=== PATIENT | male | born 1975 | race Caucasian/White ===

== ENCOUNTER 2016-06-23 19:04 | Emergency (ER) | payer MEDICAID, OTHER ==
[2016-06-23 19:18] VITALS: BP 159/110
--- NOTE | 2016-06-23 19:44 | EDM.PDOC ---
ED HPI GENERAL MEDICAL PROBLEM - General Chief Complaint: General Stated Complaint: PAINFUL HERNIA Time Seen by Provider: 06/23/16 19:15 Source of Information: Reports: Patient History Limitations: Reports: No limitations - History of Present Illness INITIAL COMMENTS - FREE TEXT/NARRATIVE: According to patient he has noticed a swelling over his belly button about 3-4 months now. The swelling does get achy at times and resolves. But for the past 3 days he has been having dull pain in the swelling and sometimes his abdomen hurts. No nausea or vomiting. Has been feeding normal. Has normal bowel movement. No abdominal bloating. No fever or chills. No dysuria. No radiation of pain. Onset Date: 06/20/16 Location: Reports: abdomen Quality: Reports: Ache Severity: mild Associated Symptoms: Denies: confusion, cough, fever/chills, nausea/vomiting, shortness of breath, weakness Epigastric Pain Score (Numeric/FACES): 2 - Related Data Allergies Allergy/AdvReac Type Severity Reaction Status Date / Time No Known Allergies Allergy Verified 06/23/16 19:17 Home Meds: Home Meds NK [No Known Home Meds] 06/23/16 [History] Social & Family History - Tobacco Use Smoking Status *Q: Former Smoker Years of Tobacco use: 20 Packs/Tins Daily: 0.5 Used Tobacco, but Quit: Yes Month Tobacco Last Used: 2005 Second Hand Smoke Exposure: Yes - Caffeine Use Caffeine Use: Reports: Coffee, Energy drinks, Soda - Recreational Drug Use Recreational Drug Use: No ED ROS GENERAL - Review of Systems Review Of Systems: See Below Constitutional: Denies: fever, chills HEENT: Denies: Rhinitis, Sinus problem, Throat pain Respiratory: Denies: Cough, Sputum Cardiovascular: Denies: Chest pain, Lightheadedness GI/Abdominal: Reports: Abdominal pain, Flatus. Denies: Decreased appetite, Difficulty swallowing, Hematemesis, Nausea, Vomiting : Denies: dysuria, flank pain, frequency Musculoskeletal: Denies: neck pain, shoulder pain, joint pain, joint swelling ED EXAM, GENERAL - Physical Exam Exam: See Below Exam Limited By: No limitations General Appearance: alert, WD/WN, no apparent distress Eye Exam: bilateral eye: EOMI, PERRL Ears: normal external exam, normal canal, hearing grossly normal, normal TMs Ear Exam: bilateral ear: auricle normal, canal normal, TM normal Nose: normal inspection Head: atraumatic, normocephalic Neck: normal inspection, supple, non-tender, full range of motion Respiratory/Chest: no respiratory distress, lungs clear, normal breath sounds, no accessory muscle use, chest non-tender Cardiovascular: normal peripheral pulses, regular rate, rhythm, no edema, no gallop, no JVD, no murmur, no rub Peripheral Pulses: 2+: radial (L), radial (R) GI/Abdominal: normal bowel sounds, soft, no organomegaly, no distention, no abnormal bruit, hernia (There ia hernia seen in the umbilical region. It is about the size of a large grape. Mild tenderness to palpation. The hernia completely reduces into the abdominal cavity. + cough im[ulse. No signs of strangulation. No rebound tenderness in the abdomen. Normal bowel sounds) Course - Vital Signs Text/Narrative:: Pt reassured that he has a reducible umbilical hernia. he does have mild tenderness with deep pressure. There are no signs of obstruction and it is easily reducible. Advised to avoid straining during defecation.I Have advised him to return to emergency room if her develops sudden onset of severe abdominal pain, distension, nausea or vomiting. Otherwise, I he will be scheduled to have outpatient surgical evaluation done through [facility]. Pt does under stand the plan. Last Recorded V/S: Last Vital Signs Temp 98.3 F 06/23/16 19:31 Pulse 85 06/23/16 19:31 Resp 16 06/23/16 19:31 BP 159/110 H 06/23/16 19:31 Pulse Ox 98 06/23/16 19:31 Departure - Departure Time of Disposition: 19:40 Disposition: Home, Self-Care 01 Condition: good Clinical Impression: Umbilical hernia Instructions: Hernia, Adult Forms: ED Department Discharge Additional Instructions: Continue to monitor for any signs/symptoms of worsening condition, such as nausea, vomiting, difficulty with bowel movements. Follow up with regular provider in clinic as needed. The hospital will contact you tomorrow about setting up an appointment for a consult with general surgery. Diet and activity as tolerated. Call with any questions. - Problem List & Annotations (1) Umbilical hernia SNOMED Code(s): 315126153, 127556939 Code(s): K42.9 - UMBILICAL HERNIA WITHOUT OBSTRUCTION OR GANGRENE Status: Acute - Problem List Review Problem List Initiated/Reviewed/Updated: Yes - Assessment/Plan Assessment:: Uncomplicated umbilical hernia Plan: Pt reassured that he has a reducible umbilical hernia. he does have mild tenderness with deep pressure. There are no signs of obstruction and it is easily reducible. Advised to avoid straining during defecation.I Have advised him to return to emergency room if her develops sudden onset of severe abdominal pain, distension, nausea or vomiting. Otherwise, I he will be scheduled to have outpatient surgical evaluation done through [facility]. Pt does under stand the plan.
== END 2016-06-23 19:30 | disposition home or self-care (01) ==
LOC: LB.ED 19:04
DX: K42.9 Umbilical hernia without obstruction or gangrene (principal); Z87.891 Personal history of nicotine dependence
CPT/HCPCS: 99283

== ENCOUNTER 2016-07-12 07:32 | Day surgery (SDC) | payer MEDICAID ==
[~2016-07-12 07:32] MED LIST: Acetaminophen/HYDROcodone 325-5 MG Tab PO PRN; Lactated Ringers 1,000 ML IV SCH; Morphine 2 MG/ML Syringe IVPUSH PRN; Ondansetron 4 MG/2 ML SDV IVPUSH PRN; Sodium Chloride 0.9% 10 ML Syringe FLUSH PRN; ceFAZolin 1 GM in Sodium Chloride 0.9% 100 ML IV ONE
[2016-07-12] MEDS: ceFAZolin 1 GM Vial ONE ×2 (08:32→08:34)
[2016-07-12] MEDS ORDERED: Propofol 1,000 MG/100 ML SDV ONE (10:10)
[2016-07-12] MEDS ORDERED: fentaNYL 250 MCG/5 ML SDV ONE (10:10)
[2016-07-12] MEDS ORDERED: Midazolam 1 MG/ML 5 ML SDV ONE (10:10)
[2016-07-12] MEDS ORDERED: Ondansetron 4 MG/2 ML SDV ONE (10:10)
[2016-07-12] MEDS ORDERED: Ketorolac 30 MG/ML SDV ONE (10:10)
[2016-07-12 12:36] VITALS: BP 119/79
--- NOTE | 2016-07-12 13:26 | OR ---
DATE OF OPERATION: 07/12/2016 PREOPERATIVE DIAGNOSIS: Incarcerated umbilical hernia. POSTOPERATIVE DIAGNOSIS: Incarcerated umbilical hernia. OPERATION: Primary umbilical hernia repair. COMPLICATIONS: None. DRAINS: None. SPECIMENS: Umbilical hernia sac and preperitoneal fat with hernia sac. ESTIMATED BLOOD LOSS: Approximately 10 mL. ANESTHESIA: General endotracheal anesthesia and general LMA anesthesia. Please see Anesthesia notes. DRAINS: None. PLATEN PRESS OPERATOR APPRENTICE: April Lawson. INDICATION: Mr. Ramirez is a 41-year-old gentleman, who has been having progressive enlargement and pain around his umbilicus. He has a clearly identifiable supraumbilical hernia and this was difficult to reduce and it appeared incarcerated. The above-mentioned procedure was explained. The risks, benefits, and complications were explained. The patient understood and agreed, and he was brought to the operating room. DESCRIPTION OF PROCEDURE: The patient was brought to the operating room and placed supine on the operating room table. Satisfactory general endotracheal and general LMA anesthesia was administered. Preoperative antibiotics and DVT prophylaxis were administered. The abdomen was prepped and draped in sterile fashion. We began by making a semicircular supraumbilical incision and subsequently deepening down the tissues with Bovie electrocautery down to the level of the hernia sac. This was then easily dissected out with Metzenbaum, Endo Tony, as well as blunt dissection with finger fracturing around the actual sac itself. I then cleared approximately 1 cm around the hernia defect using Bovie electrocautery and then using Bovie electrocautery to allow access to the fascia. This was done circumferentially around the umbilicus and around the defect. I was then able to identify the plane between the hernia sac and the overlying skin of the umbilicus. Then using Metzenbaum, Endo Tony, and Bovie electrocautery, the hernia sac was removed off the skin itself. The skin was retracted back and the hernia sac was then clearly delineated and its margins were delineated at the level of the fascia. The fascial defect was approximately 1.5 cm in size. The hernia was then broken into 2 parts using hemostats and clamped and subsequently excised using Bovie electrocautery and the sac and content, which was preperitoneal fat, was removed and passed off for permanent histology. The clamped segments of fat were then tied off with 0 silk ties. This fell back into the abdomen with good hemostasis appeared satisfactory. The defect was now clearly visible and I then placed 0 PDS sutures in an interrupted fashion along the fascial defect, approximately 5 were utilized to close the defect satisfactorily. Next, the wound was then thoroughly irrigated with warm normal saline and hemostasis was achieved with Bovie electrocautery. The umbilical skin was then reapproximated to the midline to reconstruct the belly button with 3- 0 Vicryl in a [id number] fashion. I then used 3-0 Vicryl in a running fashion to close the subcutaneous layer to close the space and this was accomplished easily. I then used another 3-0 Vicryl in a deep dermal fashion to bring together at the skin. This was an interrupted deep dermal fashion. This skin was then closed with 4-0 Monocryl in a subcuticular fashion. Dermabond glue was applied. Hemostasis was satisfactory. The patient tolerated the procedure well. There were no complications. Instrument count was correct. The patient was awoken in the OR and taken to the PACU for recovery. CLARA /[id number]
== END 2016-07-12 15:51 | disposition home or self-care (01) ==
LOC: LB.SDS 07:32
PROVIDERS: ATTEND Surgery
DX: K42.0 Umbilical hernia with obstruction, without gangrene (principal); I10 Essential (primary) hypertension; E11.9 Type 2 diabetes mellitus without complications; Z79.899 Other long term (current) drug therapy; Z87.891 Personal history of nicotine dependence
CPT/HCPCS: 49587; 88302; 96374; J0690; J1885; J2250; J2405; J3010; J7030; J7050; J7120; J3490

== ENCOUNTER 2016-10-25 23:22 | Emergency (ER) | payer MEDICAID ==
[2016-10-25] MEDS ORDERED: Aspirin 81 MG Tab.Chew PO SCH (23:45)
[2016-10-25] MEDS ORDERED: Metoprolol Tartrate 5 MG/5 ML SDV IVPUSH ONE (23:48)
--- NOTE | 2016-10-25 23:52 | EDM.PDOC ---
ED HPI GENERAL MEDICAL PROBLEM - General Chief Complaint: General Stated Complaint: tingling arm Time Seen by Provider: 10/25/16 23:25 Source of Information: Reports: Patient History Limitations: Reports: No Limitations - History of Present Illness INITIAL COMMENTS - FREE TEXT/NARRATIVE: Started to have pain in his left arm around 6 p tonight; he states the pain started at his elbow and shot up. So, extremely atypical. However, he also has left sided chest pressure that radiates into his left side of his neck; It is a constant. He took 2 regular aspirins around 6:20. Seems like it helped for a little bit. He felt SOB, nauseated and diaphoretic. Fam hx, hptn and high cholesterol along with being a middle aged male makes him at moderate risk for CAD. Onset: Today Onset Date: 10/25/16 Onset Time: 18:00 Duration: Hour(s): (4 hours ) Location: Reports: Chest, Upper Extremity, Left Quality: Reports: Sharp, Stabbing, Other (arm pain, chest pressure) Severity: Moderate Improves with: Reports: None Worsens with: Reports: None Associated Symptoms: Reports: Chest Pain, Diaphoresis, Nausea/Vomiting, Shortness of Breath Left Chest Pain Score (Numeric/FACES): 5 - Related Data Allergies Allergy/AdvReac Type Severity Reaction Status Date / Time No Known Allergies Allergy Verified 10/26/16 00:17 Home Meds: Home Meds Lisinopril [Prinivil] 10 mg PO DAILY 07/10/16 [History] Past Medical History Cardiovascular History: Reports: [place], Other (See Below) Other Cardiovascular History: States he used to be medicated for HTN, but has not been for sometime. Respiratory History: Reports: Asthma Gastrointestinal History: Reports: Other (See Below) Other Gastrointestinal History: Umbilical hernia Endocrine/Metabolic History: Reports: Diabetes, Type II, Other (See Below) Other Endocrine/Metabolic History: Reports he had "very low" diabetes, but has never been medicated for it, and is "not sure" if he "still has it anymore." - Infectious Disease History Infectious Disease History: Reports: Chicken Pox Social & Family History - Family History Family Medical History: Noncontributory - Tobacco Use Smoking Status *Q: Former Smoker Years of Tobacco use: 20 Packs/Tins Daily: 0.5 Used Tobacco, but Quit: Yes Month Tobacco Last Used: 2005 Second Hand Smoke Exposure: Yes - Caffeine Use Caffeine Use: Reports: Coffee, Energy Drinks, Soda - Recreational Drug Use Recreational Drug Use: No ED ROS GENERAL - Review of Systems Review Of Systems: See Below Constitutional: Reports: Diaphoresis HEENT: Reports: No Symptoms Respiratory: Reports: Shortness of Breath Cardiovascular: Reports: Chest Pain, Dyspnea on Exertion, Other (more of a chest pressure) GI/Abdominal: Reports: Nausea : Reports: No Symptoms Musculoskeletal: Reports: Neck Pain, Shoulder Pain, Arm Pain (all left side starting at elbow and moves up) Skin: Reports: No Symptoms Neurological: Reports: No Symptoms Psychiatric: Reports: No Symptoms ED EXAM, GENERAL - Physical Exam Exam: See Below Exam Limited By: No Limitations General Appearance: Alert, WD/WN, No Apparent Distress Ears: Normal External Exam Nose: Normal Inspection Throat/Mouth: Normal Inspection, Normal Lips Head: Atraumatic, Normocephalic Neck: Normal Inspection, Non-Tender, Full Range of Motion Respiratory/Chest: No Respiratory Distress, Lungs Clear, Normal Breath Sounds Cardiovascular: Normal Peripheral Pulses, Regular Rate, Rhythm, No Edema Peripheral Pulses: 4+: Posterior Tibial (L), Posterior Tibial (R), Dorsalis Pedis (L), Dorsalis Pedis (R) GI/Abdominal: Normal Bowel Sounds, Soft, Non-Tender Back Exam: Full Range of Motion Extremities: Normal Range of Motion Neurological: Alert, Oriented, CN II-XII Intact Psychiatric: Normal Affect, Normal Mood Skin Exam: Warm, Dry, Intact EKG INTERPRETATION EKG Date: 10/26/16 Rhythm: NSR Rate (Beats/Min): 85 P-Wave: Present QRS: Normal ST-T: Other (V1 slight elevation, V2 ? Had [facility] ER doc review; didn't feel it was STEMI protocol) Course - Vital Signs Last Recorded V/S: Last Vital Signs Temp 98 F 10/25/16 23:25 Pulse 105 H 10/26/16 00:26 Resp 16 10/25/16 23:25 BP 152/92 H 10/26/16 00:26 Pulse Ox 97 10/25/16 23:25 - Orders/Labs/Meds Orders: Active Orders 24 hr Category Date Time Status Cardiac Monitoring [RC] .As Directed Care 10/26/16 00:29 Ordered EKG Documentation Completion [RC] ASDIRECTED Care 10/25/16 23:47 Active EKG Documentation Completion [RC] ASDIRECTED Care 10/25/16 23:56 Ordered Chest 1V Frontal [CR] Stat Exams 10/25/16 23:46 Ordered INR,PT,PROTHROMBIN TIME [COAG] Stat Lab 10/26/16 00:28 Ordered PTT,PARTIAL THROMBOPLSTIN TIME [COAG] Stat Lab 10/26/16 00:28 Ordered Aspirin Med 10/25/16 23:45 Active 162 mg PO DAILY Heparin Sodium/D5W [Heparin 25,000 Units in D5W 500 ML] Med 10/26/16 00:30 Ordered 25,000 units in 500 ml IV TITRATE Nitroglycerin [Nitrostat] Med 10/25/16 23:52 Active 0.4 mg SL Q5M PRN Medication Orders Aspirin (Aspirin) 162 mg PO DAILY SATINDER Heparin Sodium/Dextrose (Heparin 25,000 Units In D5w 500 Ml) 25,000 units in 500 mls @ 20 mls/hr IV TITRATE SATINDER; 1,000 UNITS/HR PRN Reason: Protocol Nitroglycerin (Nitrostat) 0.4 mg SL Q5M PRN PRN Reason: Chest Pain Labs: Laboratory Tests 10/25/16 10/25/16 Range/Units 23:55 23:55 WBC 7.2 (4.0-11.0) K/uL RBC 5.00 (4.50-6.50) M/uL Hgb 15.0 (13.0-18.0) g/dL Hct 43.3 (40.0-54.0) % MCV 87 (76-96) fL MCH 30.0 (27.0-32.0) pg MCHC 34.6 (31.0-35.0) g/dL RDW 13.4 (11.0-16.0) % Plt Count 209 (150-400) K/uL MPV 9.8 (6.0-10.0) fL Neut % (Auto) 57.5 (45.0-70.0) % Lymph % (Auto) 28.8 (20.0-40.0) % [place] % (Auto) 11.9 H (3.0-10.0) % Eos % (Auto) 1.5 (1.0-5.0) % Baso % (Auto) 0.3 (0.0-0.5) % Neut # (Auto) 4.14 (2.00-7.50) K/uL Lymph # (Auto) 2.08 (1.50-4.00) K/uL [place] # (Auto) 0.86 H (0.20-0.80) K/uL Eos # (Auto) 0.11 (0.04-0.40) K/uL Baso # (Auto) 0.02 (0.02-0.10) K/uL Sodium 139 (136-145) mmol/L Potassium 3.7 (3.5-5.1) mmol/L Chloride 103 (98-107) mmol/L Carbon Dioxide 29.6 (21.0-32.0) mmol/L Anion Gap 10.1 (5.0-15.0) mmol/L BUN 17 (8-26) mg/dL Creatinine 1.37 H D (0.70-1.30) mg/dL Est Cr Clr Drug Dosing 2.48 mL/min Estimated GFR (MDRD) 57 L (>60) MLS/MIN BUN/Creatinine Ratio 12.4 (6-25) Glucose 123 H (74-100) mg/dL Calcium 9.2 (8.5-10.1) mg/dL Total Bilirubin 0.5 (0.0-1.0) mg/dL AST 34 (15-37) U/L ALT 106 H (12-78) U/L Alkaline Phosphatase 76 (46-116) U/L Troponin I 0.024 (0.000-0.060) ng/mL Total Protein 7.3 (6.4-8.2) g/dL Albumin 3.9 (3.4-5.0) g/dL Globulin 3.4 (2.2-4.2) g/dL Albumin/Globulin Ratio 1.1 (0.8-2.0) Meds: Medications Generic Name Dose Route Start Last Admin Trade Name Freq PRN Reason Stop Dose Admin Aspirin 162 mg 10/25/16 23:45 Aspirin PO DAILY [facility] Heparin Sodium/Dextrose 25,000 units in 500 mls @ 20 mls/hr 10/26/16 00:30 Heparin 25,000 Units In D5w 500 Ml IV TITRATE [facility] Protocol 1,000 UNITS/HR Nitroglycerin 0.4 mg 10/25/16 23:52 Nitrostat SL Q5M PRN Chest Pain Discontinued Medications Generic Name Dose Route Start Last Admin Trade Name Markel PRN Reason Stop Dose Admin Metoprolol Tartrate 5 mg 10/25/16 23:48 Lopressor IVPUSH 10/25/16 23:49 ONETIME ONE - Radiology Interpretation Free Text/Narrative:: Chest xray shows no acute cardiopulmonary process - Re-Assessments/Exams Free Text/Narrative Re-Assessment/Exam: 10/26/16 00:10 1 SL Ntg for 4/10 chest pressure; 5 minutes later, pain is a 1 Free Text/Narrative Re-Assessment/Exam: 10/26/16 00:42 2nd nitro given, pain is a 0 now. BP 131/84 (initial BP 180 systolic) Departure - Departure Time of Disposition: 13:45 Disposition: DC/Tfer to Acute Hospital 02 Condition: Fair Clinical Impression: Chest pain - Discharge Information Forms: ED Department Discharge ED Communication - ED Communication Date/Time Date: 10/26/16 Time Called: 00:30 - Discussed Case With (1) Discussed Case With (1): Admitting Provider (Spoke with Keli custom bookbinder; Consult Accepting is Dr. Fung, Hospitalist) - Problem List & Annotations (1) Chest pain SNOMED Code(s): 53673202 Code(s): R07.9 - CHEST PAIN, UNSPECIFIED Status: Acute Priority: High Qualifiers: Ischemic chest pain type: unspecified angina pectoris type - Problem List Review Problem List Initiated/Reviewed/Updated: Yes - My Orders Last 24 Hours: My Active Orders 10/25/16 23:45 Aspirin 162 mg PO DAILY 10/25/16 23:46 Chest 1V Frontal [CR] Stat 10/25/16 23:47 EKG Documentation Completion [RC] ASDIRECTED 10/25/16 23:52 Nitroglycerin [Nitrostat] 0.4 mg SL Q5M PRN 10/25/16 23:56 EKG Documentation Completion [RC] ASDIRECTED 10/26/16 00:28 INR,PT,PROTHROMBIN TIME [COAG] Stat PTT,PARTIAL THROMBOPLSTIN TIME [COAG] Stat 10/26/16 00:29 Cardiac Monitoring [RC] .As Directed 10/26/16 00:30 Heparin Sodium/D5W [Heparin 25,000 Units in D5W 500 ML] 25,000 units in 500 ml IV TITRATE - Assessment/Plan Last 24 Hours: My Active Orders 10/25/16 23:45 Aspirin 162 mg PO DAILY 10/25/16 23:46 Chest 1V Frontal [CR] Stat 10/25/16 23:47 EKG Documentation Completion [RC] ASDIRECTED 10/25/16 23:52 Nitroglycerin [Nitrostat] 0.4 mg SL Q5M PRN 10/25/16 23:56 EKG Documentation Completion [RC] ASDIRECTED 10/26/16 00:28 INR,PT,PROTHROMBIN TIME [COAG] Stat PTT,PARTIAL THROMBOPLSTIN TIME [COAG] Stat 10/26/16 00:29 Cardiac Monitoring [RC] .As Directed 10/26/16 00:30 Heparin Sodium/D5W [Heparin 25,000 Units in D5W 500 ML] 25,000 units in 500 ml IV TITRATE Plan: Transfer to [facility] as direct admit for further evaluation;
[2016-10-25] MEDS: Nitroglycerin 0.4 MG Tab.SL SL PRN (23:53)
[2016-10-26] MEDS: Nitroglycerin 0.4 MG Tab.SL SL PRN (00:25)
[2016-10-26] MEDS ORDERED: Heparin Sodium/D5W 25,000 UNITS/500 ML BAG IV SCH (00:30)
[2016-10-26] MEDS ORDERED: Sodium Chloride 0.9% 1,000 ML IV SCH (01:00)
[2016-10-26] MEDS ORDERED: Heparin Sodium 5,000 UNITS/0.5 ML Syringe IVPUSH ONE (01:00)
[2016-10-26 02:59] VITALS: BP 118/69
--- NOTE | 2016-10-29 08:19 | CR ---
Date of Exam: 10/26/2016 Clinical Data: Chest pain. AP PORTABLE CHEST: Comparison is made to a prior exam dated 01/04/2016. The heart size is within normal limits. The lungs are clear. No change from the prior exam. Impression: No evidence of acute intrathoracic disease. Thank you for allowing us to participate in the care of your patient. ANDREINA
== END 2016-10-26 01:45 ==
LOC: LB.ED 23:22
DX: R07.89 Other chest pain (principal); I10 Essential (primary) hypertension; J45.909 Unspecified asthma, uncomplicated; I25.2 Old myocardial infarction; E11.9 Type 2 diabetes mellitus without complications; Z87.891 Personal history of nicotine dependence
CPT/HCPCS: 36415; 71010; 80053; 84484; 85025; 85610; 85730; 93005; 96374; 99285; A0425; A0429; A9270; J1644; J7040

== ENCOUNTER 2018-07-20 06:47 | Emergency (ER) | payer MEDICAID | END 2018-07-20 07:35 | disposition left against medical advice (07) | LOC: LB.ED 06:47 | DX: Z13.9 Encounter for screening, unspecified (principal) ==

== ENCOUNTER 2023-01-04 15:40 | Emergency (ER) | payer SELFPAY ==
[2023-01-04 16:07] VITALS: BP 183/121; PULSE 110
[2023-01-04] MEDS ORDERED: Diphtheria,Pertussis(Acell),Tetanus Vaccine 0.5 ML Syringe IM ONE (16:21)
[2023-01-04] MEDS ORDERED: Mupirocin Oint 22 GM Tube TOP ONE (16:22)
[2023-01-04] MEDS ORDERED: Cephalexin 500 MG Cap PO ONE (16:22)
[2023-01-04] MEDS ORDERED: Lidocaine 1% 30 ML SDV INFILT ONE (16:22)
[2023-01-04] MEDS ORDERED: Lidocaine 1% 5 ML VIAL INJECT ONE (16:25)
[2023-01-04] MEDS ORDERED: Cephalexin 500 MG Cap ONE (16:45)
[2023-01-04] MEDS ORDERED: Bacitracin Oint 1 GM U/D Packet TOP ONE (16:49)
== END 2023-01-04 16:57 | disposition home or self-care (01) ==
LOC: LB.ED 15:40
DX: S61.412A Laceration without foreign body of left hand, initial encounter (principal); I10 Essential (primary) hypertension; I25.2 Old myocardial infarction; E11.9 Type 2 diabetes mellitus without complications; F17.210 Nicotine dependence, cigarettes, uncomplicated; Z23 Encounter for immunization; W45.0XXA Nail entering through skin, initial encounter
CPT/HCPCS: 12002; 90471; 90715; 99282; A9270

== ENCOUNTER 2024-12-26 23:48 | Emergency (ER) | payer SELFPAY ==
[2024-12-26] MEDS: Nitroglycerin 0.4 MG Tab.SL SL PRN (23:59)
[2024-12-27] MEDS ORDERED: Sodium Chloride 0.9% 10 ML Syringe FLUSH PRN (00:03)
[2024-12-27] MEDS: Heparin Sodium 5,000 Units/ML Vial IVPUSH ONE ×2 (00:09→00:20)
[2024-12-27] MEDS: Metoprolol Tartrate 5 MG/5 ML SDV IVPUSH ONE (00:10)
[2024-12-27 00:11] LABS: MEAN PLATELET VOLUME 9.1 fL (6.0-10.0); PLATELET COUNT,PLT 276.0 K/uL (150-400); RED BLOOD CELL COUNT 6.05 M/uL (4.50-6.50); RED CELL DISTRIBUTION WIDTH 12.9 % (11.0-16.0); WHITE BLOOD CELL COUNT,WBC 9.6 K/uL (4.0-11.0)
[2024-12-27] MEDS: Metoprolol Tartrate 5 MG/5 ML SDV ONE (00:11)
[2024-12-27 00:23] LABS: A/G RATIO 1.0 (0.8-2.0); ALANINE AMINOTRANSFERASE,ALT 49.0 U/L (12-78); ASPARTATE AMNIOTRANSFERASE,AST 23.0 U/L (15-37); BILIRUBIN TOTAL 0.5 mg/dL (0.0-1.0); BLOOD UREA NITROGEN,BUN 20.0 mg/dL (8-26); CARBON DIOXIDE,CO2 23.1 mmol/L (21.0-32.0); CHLORIDE,CL 97.0 mmol/L (98-107); CREATININE 1.2 mg/dL (0.70-1.30); EST CRCL DRUG DOSING (CG) 72.83 mL/min; ESTIMATED GFR 73.0 mL/min (>60); GLUCOSE RANDOM 351.0 mg/dL (74-100); POTASSIUM,K 3.9 mmol/L (3.5-5.1); PROTEIN TOTAL,TP 8.4 g/dL (6.4-8.2); SODIUM,NA 135.0 mmol/L (136-145)
[2024-12-27 00:27] LABS: TROPONIN I HIGH SENSITIVITY 130.5 pg/ml (<=60.4)
[2024-12-27] MEDS: Morphine 10 MG/ML SDV ONE (00:43)
[2024-12-27 01:10] VITALS: BP 163/114; PULSE 100
== END 2024-12-27 01:30 ==
LOC: LB.ED 23:48
DX: I21.4 Non-ST elevation (NSTEMI) myocardial infarction (principal); I25.9 Chronic ischemic heart disease, unspecified; E11.9 Type 2 diabetes mellitus without complications; I25.2 Old myocardial infarction; J45.909 Unspecified asthma, uncomplicated; F17.200 Nicotine dependence, unspecified, uncomplicated; Z79.82 Long term (current) use of aspirin
CPT/HCPCS: 36415; 71045; 80053; 83735; 84484; 85027; 85379; 85730; 93005; 96365; 96374; 96375; 96376; 99285-25; A9270-GY; J1644; J2270; J3490; J7030